=== PATIENT | male | born 1980 | race Caucasian/White ===

== ENCOUNTER 2016-12-28 13:07 | Emergency (ER) | payer BC ==
[2016-12-28 13:22] VITALS: BP 125/76; PULSE 90; TEMP 97.2; BMI 25.1
[2016-12-28] MEDS ORDERED: LIDOCAINE 2% 5 ML (PRESERVATIVE FREE) VIAL INF ONE (13:32)
[2016-12-28] MEDS ORDERED: DIPHTHERIA AND TETANUS (ADULT) 0.5 ML SYR IM ONE (13:32)
--- NOTE | 2016-12-28 14:18 | EDPRACDOC ---
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 NEEDS TETANUS. NO OTHER INJURY. - Tetanus Status Last Tetanus: No - Pain Pain Severity: Mild Bleeding: Reports: Controlled Associated Signs & Symptoms: Reports: None ED Past Medical History - History Reviewed Yes Nurses notes reviewed and agree except as marked - Patient Medical History Psychological History: Denies: Depression Surgical History: Reports: Cholecystectomy - Social Medical History Smoking Status: Never smoker EDM Review of Systems - Review of Systems ROS Negative Except as Marked: Yes All systems reviewed and were negative except as marked Constitutional: No Symptoms Reported Neurological: No Symptoms Reported Musculoskeletal: Hand Integumentary: Wound - Physical Exam Constitutional: Alert (Awake), No apparent distress Oriented to: Time, Person, Place Last recorded Vital Signs: Last Vital Signs Temp 97.2 F L 12/28/16 13:18 Pulse 90 12/28/16 13:18 Resp 20 12/28/16 13:18 BP 125/76 12/28/16 13:18 Pulse Ox 96 12/28/16 13:18 Oxygen Pulse Oxygen Saturation 96 O2 Device Room Air Oxygen Flow Rate Fraction of Inspired Oxygen ( FIO2) - HEENT Head: Normal Eye Exam: Normal Neck: Normal, Denies Pain, Midline - Respiratory/Cardiovascular Respiratory: Normal - CTA Cardiovascular: Normal - GI Palpation: Normal Tenderness: Non tender - Musculoskeletal Back: Normal Extremities: Other (NOTED LINEAR LACERATIONS ACROSS INDEX FINGER TO 5TH FINGER; ONLY DEEP TO DERMIS FOR 3ND-4TH FINGER; NO BLEEDING;) - Integumentary Skin: Normal Lymphatics: Normal - Neurologic Mood Description: Normal Thought: Coherent ED Procedures - Suture/Laceration Suture #1 Right Volar Finger Wound Length (cm): 1.0 Wound's Depth, Shape: linear Wound Explored: contaminated Irrigated w/ Saline (ccs): 500 Betadine Prep?: Yes Anesthesia: 1% Lidocaine Volume Anesthetic (ccs): 1 Wound Debrided: minimal Wound Margins: Revised Wound Repaired With: Sutures Suture Size/Type: 4:0, nylon Number of Sutures: 5 Layer Closure?: No Suture #2 Right Volar Finger Wound Length (cm): 0.5 Wound's Depth, Shape: linear Wound Explored: contaminated Betadine Prep?: Yes Anesthesia: 1% Lidocaine Volume Anesthetic (ccs): 1 Wound Debrided: minimal Wound Margins: Revised Wound Repaired With: Sutures Suture Size/Type: 4:0, nylon Number of Sutures: 3 Layer Closure?: No Suture #3 Right Volar Finger Wound Length (cm): 0.25 Wound's Depth, Shape: linear Wound Explored: contaminated Betadine Prep?: Yes Anesthesia: 1% Lidocaine Volume Anesthetic (ccs): 1 Wound Debrided: minimal Wound Margins: Revised Wound Repaired With: Sutures Suture Size/Type: 4:0, nylon Number of Sutures: 2 Layer Closure?: No Decision Time to Discharge: 14:17 - Departure Disposition: Home Condition: Good Final Diagnosis: [id number] Instructions: Laceration (ED) Education/Counseling Given To: Patient Education/Counseling Given Regarding: Diagnosis, Treatment, Follow Up Referrals: Pranay Avelar Jr, [Primary Care Provider] - One Week Prescriptions: No Action No Home Medications 0 NA DIR #0 info Additional Instructions: CHANGE BANDAGE DAILY AT LEAST (MORE IF WOUND GETS DIRTY). DO NOT SOAK. HAVE REMOVED IN 7-10 DAYS.
== END 2016-12-28 14:25 | disposition home or self-care (01) ==
LOC: EDMC 13:07
DX: S61.210A Laceration without foreign body of right index finger without damage to nail, initial encounter (principal); S61.216A Laceration without foreign body of right little finger without damage to nail, initial encounter; S61.212A Laceration without foreign body of right middle finger without damage to nail, initial encounter; S61.214A Laceration without foreign body of right ring finger without damage to nail, initial encounter; W45.8XXA Other foreign body or object entering through skin, initial encounter; Z23 Encounter for immunization
CPT/HCPCS: 12001; 90471; 90714; 99282; J2001